=== PATIENT | female | born 1940 | race Caucasian/White ===

== ENCOUNTER 2021-03-28 15:25 | Inpatient (IN) | payer MEDICARE, OTHER ==
[~2021-03-28] VITALS: Ht 157.5 cm; Wt 60.7 kg
[2021-03-28 15:54] LABS: BASOPHILS ABSOLUTE AUTO 0.04 K/mm3 (0.00-0.23); BASOPHILS PERCENT AUTO 1 % (0-2); EOSINOPHILS ABSOLUTE AUTO 0.15 K/mm3 (0.00-0.68); EOSINOPHILS PERCENT AUTO 2 % (0-6); Hematocrit 41.4 % (33.0-51.0); Hemoglobin 14.2 g/dL (11.5-16.0); IMMATURE GRAN ABSOLUTE AUTO 0.06 K/mm3 (0.00-0.10); IMMATURE GRAN PERCENT AUTO 1 % (0-1); LYMPHOCYTES ABSOLUTE AUTO 0.91 K/mm3 (0.84-5.20); LYMPHOCYTES PERCENT AUTO 12 % (21-46); MONOCYTES ABSOLUTE AUTO 0.72 K/mm3 (0.16-1.47); MONOCYTES PERCENT AUTO 10 % (4-13); Mean Corpuscular HGB 32.5 pg (26.0-34.0); Mean Corpuscular HGB Conc 34.3 g/dL (31.5-36.5); Mean Corpuscular Volume 95 fL (80-100); Mean Platelet Volume 10.6 fL (9.1-12.4); NEUTROPHILS ABSOLUTE AUTO 5.49 K/mm3 (1.96-9.15); NEUTROPHILS PERCENT AUTO 75 % (41-73); Platelet Count 145 K/mm3 (150-400); RDW Coefficient Variation 13.3 % (11.7-14.2); RDW Standard Deviation 46.8 fL (35.1-46.3); Red Blood Cell Count 4.37 M/mm3 (3.80-5.20); White Blood Cell Count 7.37 K/mm3 (4.00-11.30)
[2021-03-28 16:11] LABS: International Normalized Ratio 1.07; Prothrombin Time Results 11.2 Sec (9.7-11.5)
[2021-03-28 16:28] LABS: Alanine Aminotransfer (ALT/SGP 27 U/L (12-78); Albumin, Blood 2.4 g/dL (3.4-5.0); Albumin/Globulin Ratio 0.8 (0.8-1.8); Alk Phos 85 U/L (50-136); Anion Gap 12 mmol/L (6-16); Aspartate Aminotrans (AST/SGOT 19 U/L (12-37); Bilirubin, Total 0.6 mg/dL (0.1-1.0); Blood Urea Nitrogen 15 mg/dL (8-24); Bun/Creatinine Ratio 20.1 (12.0-20.0); CO2, Blood 19 mmol/L (21-32); Calcium, Blood 8.6 mg/dL (8.5-10.1); Chloride, Blood 105 mmol/L (98-108); Creatinine, Blood 0.75 mg/dL (0.40-1.00); Globulin, Blood 3.2 g/dL (2.2-4.0); Glomerular Filtration Rate >60 (60-); Glucose, Blood 270 mg/dL (70-99); Magnesium, Blood 1.5 mg/dL (1.6-2.4); Sodium, Blood 136 mmol/L (136-145); Total Protein, Blood 5.6 g/dL (6.4-8.2)
--- NOTE | 2021-03-29 05:08 | NUR ---
SHIFT SUMMARY DANIEL: DANIEL WAS ADMONISTERED HER K+ UPON ADMISSION TO THE FLOOR. SHE HAD RECEIVED MG++ REPLACEMENT IN THE ER. CHEMISTRY LAB RESULTS PENDING. VITALS WERE OK. SHE E IS ON 1L NC SPO2 UPPER 90'S. SLEPT MOST OF THE NIGHT BUT COMPLAINS OF PAIN AND GRIMACES WHEN BEING TURNED Q2.CONTINUE TO MONITOR
[2021-03-29 05:30] LABS: Anion Gap 5 mmol/L (6-16); Blood Urea Nitrogen 12 mg/dL (8-24); Bun/Creatinine Ratio 22.1 (12.0-20.0); CO2, Blood 31 mmol/L (21-32); Calcium, Blood 9.2 mg/dL (8.5-10.1); Chloride, Blood 102 mmol/L (98-108); Creatinine, Blood 0.54 mg/dL (0.40-1.00); Glomerular Filtration Rate >60 (60-); Glucose, Blood 205 mg/dL (70-99); Potassium, Blood 4.2 mmol/L (3.5-5.5); Sodium, Blood 138 mmol/L (136-145)
--- NOTE | 2021-03-29 08:00 | NUR ---
pt laying in bed with eyes closed, opens eyes when name is spoke, asked her if she is cold, she said yes, warm blanket given, no further conversation, unable to fully participate in assessment, lungs are clear dim in bases, on 2 liters 02 via n/c, resp even and unlabored, no cough noted, hrr, tele in place running sr per monitor, see strip, no edema noted, ppp+1, cap refill <3sec, vs stable, afebrile, iv site is clear and pantent, btx4, abd flat soft nontender, incont of urine, attends in place, skin c/w/d, phil, suzanne, call light in reach.
--- NOTE | 2021-03-29 12:33 | NUR ---
Nano became fidgity and maoning out, when asked states she's having pain all over, call to Dr. Panda, recieved order for fentanyl, gave pt 25mcg with good relief. states she feels much better but is still a bit fidgity. call light in reach.
--- NOTE | 2021-03-29 12:49 | NUR ---
pt tolerating sips of water, she removed her iv, states it's itching. attempted twice to place new one, but she pulled her arm and wasn't successful, asked rn charge to try. call light in reach.
--- NOTE | 2021-03-29 18:10 | NUR ---
pt is yelling out, changed her attendes and placed a mepilex on her coccyx as there is breakdown, changed her davis pad, and when we pulled her up in bed she yelled out, medicated her with 10mg roxinal for pain, placed her on her side propped with pillows, throughout the day. call light in reach.
--- NOTE | 2021-03-29 18:56 | NUR ---
pt wiggled herself sideways in bed. repositioned her, propped on her side with pillows. bed alarm regional wildlife agent light in reach.
--- NOTE | 2021-03-30 06:26 | NUR ---
PATIENT WAS ALERT AND ORIENTED X2, STABEL VITAL SIGNS, NO ACUTE CHANGES. PATIENT DENIED ANY PAIN BUT WAS RESTLESS AT THE BEGINING OF THE SHIFT BUT AFTER SHE WAS GIVEN ATIVAN SHE FEEL ASLEEP AND SLEPT THROUGH THE NIGHT.CALL LIGHT WITHIN REACH AND BED DOWN TO THE LOWEST POSITION.
--- NOTE | 2021-03-30 07:34 | NUR ---
pt laying in bed asleep, eyes closed, resting comfortably, lungs are clear dim, on 2 liters 02 via n/c, resp even and unlabored, no cough noted, hrr, no edema noted, ppp+1, cap refill <3sec, vs stable, afebrile, iv site to rfa site is clear and patent, btx4, abd flat soft nontender, incont of urine and stool, attends in place, skin is fragile, maew, low back pain, suzanne, call light in reach.
--- NOTE | 2021-03-30 12:20 | NUR ---
pt waking up, moaning, states she has a h/a, Dr. Benson in to see her, spoke with her daughter, gave 5mg roxanol for pain. pt has been turned, call light in reach.
--- NOTE | 2021-03-30 18:22 | NUR ---
pt has been calmer today, but is calling out, gave 1mg ativan, offered pain meds, she states she doesn't want them. at a bit of food for lunch and dinner, new iv placed to lfa, no further changes this shift. call light in reach.
--- NOTE | 2021-03-31 06:43 | NUR ---
PATIENT WAS ALERT AND ORIENTED X1, STABLE VITAL SIGNS, NO ACUTE CHANGES. PATIENT COMPLAINED OF PAIN AND WAS GIVEN FENTANYL 50MCG. PATIENT SLEPT THROUGHT THE NIGHT. CALL LIGHT WITHIN REACH AND BED DOWN TO THE LOWEST POSTION. WILL CONTINUE TO MONITOR UNTIL HAND OFF.
--- NOTE | 2021-03-31 07:30 | NUR ---
ASSUMED CARE: PT RESTING QUIETLY AT THIS TIME. NO ACUTE NEEDS OR CONCERNS.
--- NOTE | 2021-03-31 13:00 | NUR ---
PT'S DAUGHTER CALLED TO GET UPDATE. DAUGHTER ASKED IF PT WAS EATING AND IF PLAN WAS TO PLACE FEEDING TUBE. REMINDED DAUGHTER THAT PT IS CURRENTLY COMFORT CARE AND THAT PLAN IS TO BE DISCHARGED ON HOSPICE. RELAYED TO HER THAT THAT MEANS THE PLAN IS NOT TO [facility] BUT TO MAKE IT COMFORTABLE. DAUGHTER STATED UNDERSTANDING AND ADMITTED CONFUSION TO SERVICES PROVIDED. DENIED FURTHER NEEDS OR CONCERNS
--- NOTE | 2021-03-31 17:30 | NUR ---
SHIFT SUMMARY: PT IS COMFORT CARE AND HAS BEEN MEDICATED TWICE FOR PAIN. AWAKE AND SPEAKS TO STAFF, KRZYSZTOF REPEATS "OH GOD" TO HERSELF BUT WHEN ASKED IF SHE IS ALRIGHT OR IN PAIN, PT'S DENIES CONCERNS. ONLY TIME SHE ADMITS PAIN IS WITH REPOSITIONING. DAUGHTER HAS BEEN GIVEN UPDATES T/O SHIFT. PLAN IS FOR DC TO SNF WITH HOSPICE
--- NOTE | 2021-04-01 05:54 | NUR ---
PATIENT WAS ALERT AND ORIENTED X2, STABEL VITAL SIGNS, NO ACUTE CHANGES. 2L O2. PATIENT SLEPT THROUGHT THE NIGHT. CALL LIGHT WITH IN REACH AND BED DOWN TO THE LOWEST POSITION. WILL CONITNUE TO MONITOR UNTIL HAND OFF.
--- NOTE | 2021-04-01 17:07 | NUR ---
Pt required 1 dose of pain medication today. She has refused food this shift. No changes needed to care plan at this time.
--- NOTE | 2021-04-02 05:03 | NUR ---
PATIENT WAS ALERT AND ORIENTED X1, STABLE VITAL SIGNS, NO ACUTE CHANGES. PATINET DENIES ANY PAIN. COMFORT CARE. PATIENT SLEPT FOR MOST OF THE NIGHT. CALL LIGHT WITHIN REACH AND BED DOWN TO THE LOWEST POSTITION. WILL CONTINUE TO MONITOR UNTIL HAND OFF.
--- NOTE | 2021-04-02 18:19 | NUR ---
PT WITH VERY FRAGILE SKIN. MULTIPLE SKIN TEARS TO BILATERAL ARMS, HEALING; NOT SURE IF PATIENT PICKS ON/SCRATCHES HER ARMS. AREAS CLEANED WITH NS; BANDAID APPLIED, AND ARMS COVERED WITH SLEEVE PROTECTIVE. PT MAINTAINED ON COMFORT CARE. A&O. MEDICATED PER MAY. NO IV ACCESS. COVERING HOSPITALIST AWARE. PT TAKES PILLS CRUSHED IN APLE SAUCE WITH NO NOTED ISSUE. PT REPOSITIONED IN BED FOR COMFORT AND TO PREVENT SKIN BREAKDOWN. NO NOTED DISTRESS. WILL CONTINUE TO MONITOR PT.
--- NOTE | 2021-04-03 06:17 | NUR ---
PATIENT WAS ALERT AND ORIENTED X1,STABLE VITAL SIGNS, NO ACUTE CHANGES. PATIENT DENIED ANY PAIN. PATIENT SLEPT THROUGH THE NIGHT. CALL LIGHT WITHIN REACH BED DOWN TO THE LOWEST POSITION. WILL CONTINUE TO MONITOT UNTIL HAND OFF.
--- NOTE | 2021-04-03 10:22 | NUR ---
COMFORT CARE PATIENT SITTING IN BED REPEATEDLY SAYING OH GOD. PATIENT STATED SHE HAS SOME PAIN BUT DOES NOT WANT ANY MEDICATION. PATIENT DENIED ANY SOB, NAUSEA OR VOMITING. REPOSITIONED PATIENT WITH AN ADDITIONAL PILLOW BEHIND HER BACK AND GAVE A WARM BLANKET. WILL CONTINUE TO MONITOR.
--- NOTE | 2021-04-03 14:42 | NUR ---
COMFORT CARE PATIENT SITTING UP IN BED FINISHING HER LUNCH. PATIENT DENIES PAIN, SOB, N/V. CHANGED PUREWICK AND REPOSITIONED PATIENT. WILL CONTINUE TO MONITOR.
--- NOTE | 2021-04-03 17:26 | NUR ---
COMFORT CARE PATIENT REPEATEDLY SAYING OH GOD BUT WHEN ASKED IF ANYTHING IS WRONG PATIENT STATES SHE DOES NOT KNOW WHY SHE KEEPS SAYING IT. PATIENT DENIES ANY PAIN, SOB, N/V. REPOSITIONED PATIENT TO FLOATING ON PILLOWS. WILL CONTINUE TO MONITOR.
--- NOTE | 2021-04-03 18:19 | NUR ---
COMFORT CARE PATIENT BOOSTED AND SAT UP TO EAT DINNER. PATIENT ABLE TO FEED HERSELF. DENIES ANY PAIN, SOB, N/V. CALL LIGHT IN REACH WILL CONTINUE TO MONITOR.
--- NOTE | 2021-04-03 18:21 | NUR ---
SHIFT SUMMARY PATIENT IS SITTING IN BED EATING DINNER. PATIENT IS ON COMFORT CARE. PATIENT COMPLAINED OF PAIN ONCE BUT REFUSED ANY PAIN MEDICATION STATING SHE DOES NOT WANT TO TAKE ANYTHING. PATIENT DENIED ANY SOB, N/V T/O SHIFT. PATIENT WOULD REPEATEDLY SAY OH GOD BUT WHEN ASKED ABOUT IT SHE STATES THAT SHE DOES NOT KNOW WHY SHE IS SAYING IT. [employer] DEVICE CHANGED DURING THIS SHIFT. BED IN LOW POSITION WITH CALL LIGHT IN REACH AND BED ALARM ARMED. WILL CONTINUE TO MONITOR.
--- NOTE | 2021-04-04 05:11 | NUR ---
SHIFT SUMMARY PATIENT IS ALERT TO SELF, ON CC, COMPLAINED OF ABDOMINAL PAIN AND ACCEPTED MORPHINE X1. PATIENT REPSOTIONED FOR COMFORT. SHE WOKE UP AROUND 4AM AND HAS BEEN SAYING "OH GOD" REPEATADLY. PATIENT DENIES PAIN, SAYS SHE IS FINE, BUT FEELS WORRIED. PRN ATIVAN OFFERED - PATIENT REFUSED. WCTM.
--- NOTE | 2021-04-04 10:34 | NUR ---
COMFORT CARE PATIENT SITTING UP IN BED. PATIENT NEEDED SOME ASSISTANCE EATING BREAKFAST TODAY. PATIENT DENIES AND PAIN, SOB, N/V. WILL CONTINUE TO MONITOR.
--- NOTE | 2021-04-04 10:38 | NUR ---
COMFORT CARE PATIENT BOOSTED IN BED AND REPOSITIONED. PATIENT DENIES ANY PAIN, SOB, N/V. WILL CONTINUE TO MONITOR.
--- NOTE | 2021-04-04 16:58 | NUR ---
COMFORT CARE PATIENT SITTING UP IN BED STILL EATING LUNCH. PATIENT DENIES PAIN, SOB, N/V. BED IN LOW POSITION WITH CALL LIGHT IN REACH. WILL CONTINUE TO MONITOR.
--- NOTE | 2021-04-04 19:48 | NUR ---
COMFORT CARE PATIENT SPILLED HER LUNCH ALL OVER HERSELF. PATIENT CLEANED UP AND FULL LINEN CHANGE. PATIENT DENIES PAIN, SOB, N/V. WILL CONTINUE TO MONITOR.
--- NOTE | 2021-04-04 19:49 | NUR ---
SHIFT SUMMARY PATIENT ON COMFORT CARE. PATIENT DENIES AND PAIN, SOB, N,V T/O SHIFT. PATIENT OCCASSIONALL SAYS OH GOD BUT WHEN ASKED ABOUT IT DOES NOT KNOW WHY SHE IS SAYING IT. WILL CONTINUE TO MONITOR.
--- NOTE | 2021-04-05 05:51 | NUR ---
A/O X1. ON COMFORT CARE. NO N/V. PAIN TREATED ONE TIME AT BEGINING OF SHIFT PER EMAR DUE TO PT REPEATING "OH GOD" AND REPORTING PAIN. NO ACUTE CHANGES OVER NIGHT, VOIDING WELL. CONTINUING TO MONITOR,WILL REPORT TO ONCOMING RN.
--- NOTE | 2021-04-05 08:25 | NUR ---
COMFORT CARE PATIENT SITTING UP IN BED WATCHING TV AND ASKING FOR A SNACK. PATIENT DENIES ANY PAIN, SOB, N/V. WILL CONTINUE TO MONITOR.
--- NOTE | 2021-04-05 15:46 | NUR ---
PATIENT SITTING UP FOR LUNCH. DENIES ANY PAIN, SOB, ANXIETY, N/V. PUREWICK CATHETER IN PLACE. WILL CONTINUE TO MONITOR.
--- NOTE | 2021-04-05 15:49 | NUR ---
COMFORT CARE PATIENT SPILLED HER LUNCH ON HER BED. COMPLETE LINEN CHANGE AND CLEANED UP PATIENT. PUREWICK IN PLACE. PATIENT DENIES ANY PAIN, ANXIETY, SOB,N/V. WILL CONTINUE TO MONITOR.
--- NOTE | 2021-04-05 17:06 | NUR ---
COMFORT CARE CHANGED PUREWICK AND BOOSTED AND REPOSITIONED PATIENT. OFFERED PATIENT SNACK. PATIENT ASKED FOR ICED TEA AND ICE CREAM. PATIENT DENIES PAIN, ANXIETY, SOB, N/V. WILL CONTINUE TO MONITOR.
--- NOTE | 2021-04-05 18:53 | NUR ---
SHIFT SUMMARY PATIENT ON COMFORT CARE. DENIES ANY PAIN, ANXIETY, SOB, N/V. DOES NOT WANT ANY MEDICATION. PUREWICK IN PLACE, VOIDING WELL. WILL CONTINUE TO MONITOR.
--- NOTE | 2021-04-05 20:29 | NUR ---
MEDICATED FOR PAIN ANXIETY AWAIT RESPONSE. PUREWICK EXTENAL CATH PATENT DRAINING
--- NOTE | 2021-04-06 00:33 | NUR ---
resting comfortably after recieving tylenol & ativan erlier for pain & anxiety. [employer] cath external patent & draining.
--- NOTE | 2021-04-06 02:22 | NUR ---
changed purewick cath external around 800 ml clear yellow urine out.
--- NOTE | 2021-04-06 06:16 | NUR ---
PT had been crying and anxious at beginning of shift & she says she didn't really want to take meds to treat but was in obvious pain & had elevated anxiety. Medicated x 1 with 1 mg oral ativan 650 mg tylenol with good relief of pain & anxiety.
--- NOTE | 2021-04-06 10:37 | NUR ---
PT SLEEPING AT THIS TIME. TRIED TO WAKE PT UP WHEN BREAKFAST ARRIVED BUT SHE PREFERRED TO SLEEP. MALLORIE LEFT IN ROOM FOR PT WHEN SHE WAKES UP.
--- NOTE | 2021-04-06 10:43 | NUR ---
PT AWAKE AND SAT UP FOR BREAKFAST. MEDICATED FOR PAIN AND ANXIETY.
--- NOTE | 2021-04-06 17:47 | NUR ---
Met with pt today for a short visit. She was alert, with moments of confusion. She reports she is having "NO pain" at the moment. She denies any issues or concerns at this time, and no changes needed to her care plan.
--- NOTE | 2021-04-06 18:12 | NUR ---
PT REPORTED THAT SHE WAS HUNGRY AND WAS ABLE TO FEED HERSELF SOME LUNCH. SHE APPEARS SLIGHTLY CONFUSED WHEN FEEDING HERSELF BUT LIKES TO DO IT HERSELF.
--- NOTE | 2021-04-06 18:14 | NUR ---
PT FELL AT AROUND 1700. PT WAS FOUND ON THE GROUND BY CARO MAGALLON RN. PT REPORTED THAT SHE WAS TRYING TO GET UP TO USE THE REST ROOM. PURWICK AND ATTENDS WERE IN PLACE PRIOR TO THE PATIENT TRYING TO GET UP. FALL UNWITNESSED. VITAL SIGNS TAKEN AND VSS. NO C/O PAIN OR DISCOMFORT. NO NEW BRUISES OR ABRAISIONS. PHYSICIAN, ADULT SCHOOL COUNSELOR, AND DAUGHTER NOTIFIED. PT HELPED BACK INTO BED BY MULTIPLE STAFF MEMBERS. BED ALARM IN PLACE.
--- NOTE | 2021-04-06 18:48 | NUR ---
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 PT ON COMFORT CARE. MEDICATED FOR PAIN X2 THIS SHIFT AND HAS APPEARED COMFORTABLE FOR THE MAJORITY OF THE SHIFT. HOWEVER, SHE HAD A MOMENT OF CONFUSION THIS SHIFT AND TRIED TO GET OUT OF BED AND WAS FOUND ON THE FLOOR. FALL ASSESSMENT DONE (SEE MAR). PT NOT INJURED BY THE FALL AND HELPED BACK INTO BED. PT WILL FEED HERSELF BUT BENEFITS FROM FEEDING ASSISTANCE. NOTIFIED FAMILY OF FALL. WILL REPORT TO TIMI RN.
--- NOTE | 2021-04-07 04:49 | NUR ---
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 On comfort care medicated several times for pain & anxiety with helpful effect. PT on fall & seizure precautions. Appetite good able to feed self with set up & supervision. Able to communicate.
--- NOTE | 2021-04-07 17:38 | NUR ---
SHIFT SUMMARY PATIENT IS ON COMFORT CARE. PATIENT HAS HAD COMFORT CARE MEASURES AND REPOSITIONING EVERY TWO HOURS AT MINIMUM. PATIENT HAS BEEN MEDICATED PER EMAR FOR ANXIETY ONCE AND HAVE OFFERED PAIN MEDICATION OFTEN AND PATIENT REFUSES PAIN MEDICATION. NO ACUTE EVENTS THIS SHIFT. WILL MONITOR UNTIL SHIFT CHANGE.
--- NOTE | 2021-04-07 23:03 | NUR ---
PT had been medicated for pain & anxiety but restless removing clothes & shredding things, removed DNR band & ID band earlier. Activity apron provided & assisted PT multiple times with oral intake. Purewick external cath patent & draining. Wounds to bilat arms covered to prevent picking stockinette over bandaides. Turned & repositioned Q 2 hours. On bed which inflates to prevent further skin breakdown.
--- NOTE | 2021-04-08 00:03 | NUR ---
PT resting quietly, turned & repositioned, redressed & checked external purewick cath. Attends changed for dampness. Denies need for medication but does moan when awake.
--- NOTE | 2021-04-08 04:39 | NUR ---
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 While awake PT moans & cries out with indications of pain but usually denies it. Medicated several times with 1 mg oral ativan & 20 mg roxinol which at times has minimal effect. Purewick external female cath paent & drains mike clear urine. 2 assist for bed mobility & toileting. Disrobes while awake & scratches at skin. Skin care with calmasetic has some helpful effect. Day RN says he spoke with PT's DTR yesterday. No calls or visitors this shift.
--- NOTE | 2021-04-08 13:13 | NUR ---
Comfort Care Visit Pt resting in bed and confused. Pt moaning and saying "Owe". When asked about pain Pt denies pain. Spoke with Primary RN Amalia and discussed Pt's pain. Amalia will offer Roxanol for pain. Palliative Care will remain available.
--- NOTE | 2021-04-08 19:20 | NUR ---
PT AAOX 1, COMFORT MEASURES AND SAFETY MEASURES MAINTAINED. MEDICATE PT PER PAIN, PT KEPT MOANING AND GROANING, BUT DENIES PAIN AT TIMES. TURNED AND REPOSITIONED PATIENT PER ORDER AND NEEDED TO MAINATIN SKIN INTEGRITY. PT KEPT ITCHING ARMS WARM ABTH GIVEN. PT SCRATCHED OFF OLD BANDAGE IN PLACE AREA CLEANED AND REDRESS. BED IN LOWEST POSITION. CALL LIGHT IN REACH.
--- NOTE | 2021-04-09 06:12 | NUR ---
SHIFT SUMMARY PATIENT ALERT AND ORIENTED TO SELF. ABLE TO FOLLOW DIRECTIONS. SLOW TO RESPOND. SHE WAS MEDICATED PER EMAR FOR PAIN AND ITCHING. NO ACUTE ISSUES NOTED OVERNIGHT. BED IN LOWEST POSITION WITH WHEELS LOCKED AND ALARM ON. CALL LIGHT WITHIN REACH. REPORT GIVEN TO ONCOMING RN.
--- NOTE | 2021-04-09 09:09 | NUR ---
Comfort Care Visit Pt resting in bed receiving personal care from GROCERY SUPERVISOR. Pt moaning indicating pain. Ended visit to allow care to continue. Spoke with Primary RN Amalia and discussed case. Amalia will offer comfort medication. Palliative Care will remain available.
--- NOTE | 2021-04-09 18:29 | NUR ---
PT A0X1, PERIODS OF CONFUSION NOTED. REMAINS ON COMFORT CARE. TRUNED AND REPOSITIONED PER ORDER AND NEEDED. MEDICATED FOR ANXIETY AND PAIN . EFFECTIVE OUTCOME NOTED. SEIZURE PRECAUTIONS MEASURED AND MAINTAINED. BED IN LOWEST POSITIONED. CALL LIGHT IN REACH.
--- NOTE | 2021-04-09 19:25 | NUR ---
PT AAOX4, ABLE TO MAKE NEEDS KNOWN. COMPLIANT WITH MEDICATION REGIMEN. SAFETY MEASURES MAINTAINED WITH BED IN LOWEST POSITION. CALL LIGHT IN REACH. PT HAS BEEN D/C HOME THIS EVENING, ACCOMPAINED BY SPOUSE. PT REMAINS IN STABLE CONDITION.
--- NOTE | 2021-04-10 03:30 | NUR ---
SHIFT SUMMARY PATIENT ON COMFORT CARE. ALERT TO SELF AND SLOW TO RESPOND. BEDREST. TAKES MEDICATION WHOLE IN APPLESAUCE. ON ROOM AIR. MOANING FIRST HALF OF SHIFT. ROXANOL 20 MG GIVEN FOR PAIN, BENADRYL 25 MG FOR ITCHING, AND PO ATIVAN 1 MG FOR INSOMNIA. SEIZURE PRECAUTIONS WITH PADS IN PLACE. SLEPT ON/OFF T/O SHIFT. CALL LIGHT IN REACH. BED IN LOWEST POSITION AND ALARM ACTIVATED. WILL CONTINUE TO MONITOR UNTIL DAY SHIFT NURSE ASSUMES CARE.
--- NOTE | 2021-04-10 09:26 | NUR ---
Comfort Care Visit Pt resting in bed and is pleasantly confused. Pt appears comfortable with no S/S of distress at this time. Spoke with Pt's Primary RN Amalia and discussed case. Pt has fair appetite with no new concerns at this time. Palliative Care will remain available.
--- NOTE | 2021-04-10 17:52 | NUR ---
PATIENT AAOX1, REMAINS ON COMFORT CARE. MICATD WAS PER ORDER, TOLERATED WELL, EFFECTIVE OUTCOMES NOTED. SEIZURE PRECAUTIONS MEASURED AND MAINTAINED. BED IN LOWEST POSITION. CALL LIGHT IN REACH.
--- NOTE | 2021-04-11 06:01 | NUR ---
SHIFT SUMMARY: PT IS A/OX1. PT TAKES MEDICATIONS PO WHOLE W/ APPLESAUCE. THE PT DOES TAKE SMALL SIPS OF H20 VERY WELL. SHE HAS MORPHINE/ATIVAN/BENADRYL IN THE eMAR PRN. SHE MOVES AROUND IN BED, BUT WE WERE ABLE TO REPOSITION HER OFTEN. BED IS IN THE LOWEST POSITION AND ALARM IS SET.
--- NOTE | 2021-04-11 09:53 | NUR ---
Comfort Care Visit Pt resting in bed and is moaning saying "owe". Pt is confused and is talking to herself. Pt may benefit from comfort medications. Will discuss with Primary RN. Palliative Care will remain available.
--- NOTE | 2021-04-11 18:47 | NUR ---
DAY SHIFT SUMMARY COMFORT CARE, UNABLE TO VERBALIZE NEEDS EFFECTIVLY. FIRST PART OF DAY PT WAS MOANING, MEDICATED PER EMAR FOR PAIN, PT ABLE TO RELAX AND SLEEP WITH NO MORE MOANING. NO ACUTE CHANGES WITH PT THIS SHIFT.
--- NOTE | 2021-04-12 05:57 | NUR ---
SHIFT SUMMARY: PT IS A/OX SELF. SHE DID HAVE A RESTFUL NIGHT. SHE DOES STILL TAKES MEDS WITH APPLESAUCE AND SMALL SIPS OF WATER AFTER. COMFORT CARE MEDS ARE IN THE eMAR. SHE WILL RESPOND WITH SIMPLE ANSWERS, BUT YOU DO HAVE TO PROMPT HER. BED IS IN THE LOWEST POSITION AND ALARM IS SET.
--- NOTE | 2021-04-12 16:56 | NUR ---
DAY SHIFT SUMMARY 81 YR OLD COMFORT CARE PT. ABLE TO TAKE PHONE CALL FROM DAUGHTER TODAY. PAIN MANAGED WITH MEDICATION PER EMAR. WAITING HOSPICE PLACEMENT. A/O TO SELF. PT ON RA, ABLE TO TAKE MEDS WHOLE WITH APPLESAUCE AND WATER. NO ACUTE CHANGES WITH PT THIS SHIFT.
--- NOTE | 2021-04-12 22:11 | NUR ---
ELIZABETH CORNELL MADE DR. BEACH AWARE THAT PT WAS UNABLE TO SAFELY SWALLOW KEPPRA. PILL IS TOO LARGE AND PT WAS HAVING DIFICULTY SWALLOWING, SHE WAS POCKETING PILL AND WOULD NOT SWALLOW DESPITE MUTPILE CUES, REMOVED PILL FROM MOUTH D/T CLINICAL JUDGEMENT. A SMALL AMOUNT DID DISSOLVE ON TONGUE WHEN PT HAD IT IN HER MOUTH BUT WHEN REMOVED THE WHOLE PILL WAS INTACT. NOTIFIED DR. BEACH OF THIS. PT HAD HER MORNING DOSE. SHE IS OK WITH PT NOT HAVING THE 2100 DOSE OF KEPRRA. SHE STATES TO USE IV ATIVAN IF NEEDED FOR SEIZURES.
--- NOTE | 2021-04-13 04:19 | NUR ---
SHIFT SUMMARY MINIMAL REPSONSES FROM PT THIS SHIFT. SHE OPENS HER MOUTH FOR PAIN MEDICATION AND SWALLOWS WITHOUT DIFFICULTY. BUT IS HAVING A HARDER TIME FOLLOWING DIRECTIONS, AND WOULD NOT SWALLOW HER 2100 DOSE OF KEPPRA. PT OPENS HER EYES WHEN HER NAME IS CALLED, BUT DOES NOT VERBALLY RESPOND. A/O TO SELF. PT MOANS OUT OCCASIONALLY, MEDICATED FOR PAIN PER EMAR. COMFORT ASSESSED T/O SHIFT. NO CALLS OR VISITS FROM FAMILY THIS SHIFT. BED IN LOWEST POSITION, CALL LIGHT WITHIN REACH.
--- NOTE | 2021-04-13 14:11 | NUR ---
Pt is no longer eating or opening her mouth for oral care. She has no IV sites. She will need to take medications that can be crushed or given rectally. Dr. Sullivan ordered oral meds that can be given either way. She also ordered benadryl cream, as pt has red/purple rash on all of her limbs and trunk that she has been scratching. Will continue to monitor. No changes needed to care plan at this time.
--- NOTE | 2021-04-13 18:21 | NUR ---
SHIFT SUMMARY PT HAS BEEN RESTING COMFORTABLE TODAY SINCE COMFORT CARE MEDICATIONS WERETAKEN CARE OF. BENEDRYL WAS APPLIED AND MADE THE PT MUCH FOR COMFORTABLE ASWELL ATIVAN TO HELP HER REST. DAUGHTER WAS UPDATED ON HER CONDITION. HAVE BEEN MEDICATED FOR PAIN PER EMAR AND INDICATED BY PT. WILL CONTINUE TO MONITOR
--- NOTE | 2021-04-13 19:46 | NUR ---
PT seen by MANAGER WELDING with no movement. RN assesses no resp no pulse confirmed by 2nd RN Luciano special agent in charge. Chest warn pale hands & LE mottled cool. Eva DTR had been updated by Day RN. Will notify of expiration. Left message at [phone] to call Geeta KRAUSE at [phone].
--- NOTE | 2021-04-13 20:08 | NUR ---
Attempted to contact DTR Eva again to verify [facility] & if [facility] services are requested left 2 message at [phone]
--- NOTE | 2021-04-13 21:03 | NUR ---
attempted to reach PT's DTR Eva for 3rd time with message left 2100. No response to prior 2 messages. customer management specialistHOMER Tripp notified
== END 2021-04-13 23:20 | DRG 54 ==
LOC: ER 15:25 → MEDS 15:26
PROVIDERS: Physician Assistant; ADMIT Internal Medicine
DX: C79.31 Secondary malignant neoplasm of brain (principal); G93.6 Cerebral edema; C34.90 Malignant neoplasm of unspecified part of unspecified bronchus or lung; E87.6 Hypokalemia; Z66 Do not resuscitate; E83.42 Hypomagnesemia; Z51.5 Encounter for palliative care
CPT/HCPCS: 36415; 70450; 72125; 80048; 80053; 82947; 83735; 85025; 85610; 93005; 93010; 94760; 96365; 96366; 96367; 96368; 96375; 99285-25; A9270; G0378; J1100; J1650; J1953; J2060; J3010; J3475; J3480; J7120